=== PATIENT | female | born 1990 | race Caucasian/White ===

== ENCOUNTER 2024-03-27 10:00 | Emergency (ER) | payer OTHER, SELFPAY ==
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
--- NOTE | ~2024-03-27 | XR_ITS ---
EXAMINATION: XR PELVIS XR FEMUR, LEFT CLINICAL INFORMATION: Pain. Trauma. COMPARISON: None. TECHNIQUE: AP view the pelvis. AP and lateral views of the left femur. FINDINGS: No acute fracture or dislocation. No joint space narrowing or marginal osteophytes. No osseous erosion. No abnormal soft tissue calcification. XR/XR femur LT 2V IMPRESSION: No acute osseous abnormality.
--- NOTE | ~2024-03-27 | XR_ITS ---
EXAMINATION: XR KNEE, LEFT CLINICAL INFORMATION: Left knee pain and swelling following injury. COMPARISON: None available. TECHNIQUE: Four views of the left knee. FINDINGS: No acute fracture or dislocation. Joint space narrowing or marginal osteophytes. No osseous erosion. No abnormal soft tissue calcification. No significant joint effusion. XR/XR knee LT 4V IMPRESSION: No acute osseous abnormality.
[2024-03-27 10:04] VITALS: BP 129/85; PULSE 109; RESP 16; TEMP 36.6; O2SAT 98; BMI 31.3
[2024-03-27] MEDS: Ibuprofen 800 MG TABLET PO (10:12)
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
[2024-03-27 11:32] VITALS: BP 105/63; PULSE 92; RESP 18; TEMP 36.2; O2SAT 99
[2024-03-27 11:57] VITALS: BP 105/63; PULSE 92; RESP 18; TEMP 36.2; O2SAT 99
== END 2024-03-27 11:58 | disposition home or self-care (01) ==
PROVIDERS: Emergency Provider Emergency Medicine
DX: S89.92XA Unspecified injury of left lower leg, initial encounter (principal); V43.52XA Car driver injured in collision with other type car in traffic accident, initial encounter; Y93.9 Activity, unspecified; Y92.9 Unspecified place or not applicable; Y99.9 Unspecified external cause status; M25.552 Pain in left hip; M25.562 Pain in left knee
CPT/HCPCS: 72170; 73552; 73564; 99283